=== PATIENT | female | born 1955 | race Hispanic/Latino ===

== ENCOUNTER 2023-03-21 11:37 | Inpatient (IN) | payer OTHER ==
[~2023-03-21] VITALS: Ht 157.5 cm; Wt 59.5 kg
[2023-03-21] MEDS ORDERED: MORPHINE 4 MG SYG IVP ONE (12:30)
[2023-03-21] MEDS ORDERED: 0.9%NACL 1000ML 1,000 ML IV ONE (12:30)
[2023-03-21] MEDS ORDERED: ONDANSETRON 4MG INJ IVP ONE (12:30)
[2023-03-21 13:08] LABS: BASOPHILS % (AUTO) 0.4 % (0.0-5.0); EOSINOPHILS % (AUTO) 1.3 % (0.0-8.0); LYMPHOCYTES % (AUTO) 24.8 % (21.0-51.0); MEAN CORPUSCULAR HEMOGLOBIN 29.9 pg (27.0-33.0); MEAN CORPUSCULAR HGB CONC 33.1 g/dL (32.0-36.0); MEAN CORPUSCULAR VOLUME 90.5 fL (79-99); MONOCYTES % (AUTO) 5.3 % (3.0-13.0); NEUTROPHILS % (AUTO) 67.9 % (40.0-77.0); PLATELET COUNT (AUTO) 277 K/uL (130-400); RED BLOOD CELL COUNT(AUTO) 4.31 MIL/uL (4.00-5.50); RED CELL DISTRIBUTION WIDTH 13.4 % (11.0-15.5); WHITE BLOOD COUNT (AUTO) 9.1 K/uL (4.8-10.8)
[2023-03-21 13:09] LABS: APPEARANCE,URINE CLEAR (CLEAR); BILIRUBIN,URINE NEGATIVE (NEGATIVE); COLOR,URINE LIGHT-YELLOW (YELLOW); GLUCOSE, URINE (UA) NEGATIVE (NEGATIVE); KETONES,URINE NEGATIVE (NEGATIVE); LEUKOCYTE ESTERASE ,URINE NEGATIVE Leu/uL (NEGATIVE); NITRATE,URINE NEGATIVE (NEGATIVE); OCCULT BLOOD,URINE NEGATIVE (NEGATIVE); PH,URINE 6.5 (5.0-8.0); PROTEIN,URINE NEGATIVE (NEGATIVE); UROBILINOGEN,URINE 0.2 mg/dL (0.2-1.0)
[2023-03-21 13:16] LABS: CARBON DIOXIDE 26 mmol/L (21-32); CHLORIDE 99 mmol/L (101-111); CREATININE 0.6 mg/dL (0.5-1.5); GLOMERULAR FILTR. RATE CALC 98 mL/min (>90); GLUCOSE,RANDOM 121 mg/dL (70-105); POTASSIUM 3.8 mmol/L (3.5-5.1); SODIUM SERUM 135 mmol/L (136-145); UREA NITROGEN, BLOOD 18 mg/dL (7-18)
[2023-03-21 13:20] LABS: ALANINE AMINOTRANSFERASE 18 U/L (12-78); ALBUMIN 4.1 g/dL (3.5-5.0); ASPARTATE AMINOTRANSFERASE 13 U/L (10-37); TOTAL PROTEIN, SERUM 7.5 g/dL (6.0-8.3)
[2023-03-21 13:31] LABS: LIPASE < 50 U/L (114-286)
[2023-03-21] MEDS ORDERED: KETOROLAC 15MG/ML VIAL (15MG/ML) IV ONE (14:00)
[2023-03-21] MEDS ORDERED: ZOSYN 3.375GM+NS 50ML 50 ML IVPB ONE (14:01)
[2023-03-21] MEDS ORDERED: LOSA100T59 PO (14:57)
[2023-03-21] MEDS ORDERED: ZOSYN 3.375GM +NS 50ML IVPB ONE (15:00)
[2023-03-21 15:11] LABS: INR 0.9 (0.85-1.15); PARTIAL THROMBOPLASTIN TIME 26.2 SEC (26.3-35.5); PROTHROMBIN TIME 9.7 SEC (9.6-11.6)
[2023-03-21 15:24] LABS: HEMOGLOBIN A1C 6.1 % (4.0-6.0)
[2023-03-21] MEDS: PHARMACY COMMUNICATION MISC SCH ×5 (16:19→23:30)
[2023-03-21] MEDS: 0.9%NACL 1000ML 1,000 ML IV SCH (16:23)
[2023-03-21] MEDS: MORPHINE 2 MG SYG IVP PRN (19:47)
[2023-03-21] MEDS ORDERED: 0.9%NACL 50ML IV SCH (20:00)
[2023-03-21] MEDS: ZOSYN 3.375GM +NS 50ML IVPB SCH (22:36)
[2023-03-21] MEDS: KETOROLAC 15MG/ML VIAL (15MG/ML) IV PRN (22:43)
[2023-03-22] MEDS: PHARMACY COMMUNICATION MISC SCH ×12 (01:30→22:32)
[2023-03-22] MEDS: 0.9%NACL 1000ML 1,000 ML IV SCH ×2 (04:50→19:22)
[2023-03-22] MEDS ORDERED: MORPHINE 4 MG SYG ONE (05:15)
[2023-03-22] MEDS: MORPHINE 2 MG SYG IVP PRN ×2 (05:20→18:03)
[2023-03-22] MEDS: ZOSYN 3.375GM +NS 50ML IVPB SCH ×3 (07:39→22:31)
[2023-03-22] MEDS: KETOROLAC 15MG/ML VIAL (15MG/ML) IV PRN ×3 (07:44→20:20)
[2023-03-22 08:05] LABS: BASOPHILS % (AUTO) 0.1 % (0.0-5.0); HEMATOCRIT 35.5 % (36-48); MEAN CORPUSCULAR HEMOGLOBIN 30.6 pg (27.0-33.0); MEAN CORPUSCULAR HGB CONC 33.5 g/dL (32.0-36.0); MEAN CORPUSCULAR VOLUME 91.3 fL (79-99); MONOCYTES % (AUTO) 7.4 % (3.0-13.0); PLATELET COUNT (AUTO) 244 K/uL (130-400); RED BLOOD CELL COUNT(AUTO) 3.89 MIL/uL (4.00-5.50); RED CELL DISTRIBUTION WIDTH 13.9 % (11.0-15.5); WHITE BLOOD COUNT (AUTO) 13.7 K/uL (4.8-10.8)
[2023-03-22 08:39] LABS: ALBUMIN 3.5 g/dL (3.5-5.0); CREATININE 0.7 mg/dL (0.5-1.5); POTASSIUM 3.7 mmol/L (3.5-5.1); TOTAL PROTEIN, SERUM 6.7 g/dL (6.0-8.3)
[2023-03-22] MEDS ORDERED: HYDRALAZINE 20MG/ML VIAL IV PRN (15:30)
[2023-03-22 16:50] VITALS: BP 129/64
[2023-03-22 19:20] VITALS: BP 128/63
[2023-03-23] VITALS (29 sets, daily range): BP systolic 121–166; BP diastolic 59–79
[2023-03-23] MEDS: PHARMACY COMMUNICATION MISC SCH ×3 (00:37→03:51)
[2023-03-23] MEDS: KETOROLAC 15MG/ML VIAL (15MG/ML) IV PRN ×2 (03:07→08:49)
[2023-03-23 05:04] LABS: HEMATOCRIT 32.4 % (36-48); MEAN CORPUSCULAR HEMOGLOBIN 29.7 pg (27.0-33.0); MEAN CORPUSCULAR HGB CONC 32.4 g/dL (32.0-36.0); MEAN CORPUSCULAR VOLUME 91.5 fL (79-99); RED BLOOD CELL COUNT(AUTO) 3.54 MIL/uL (4.00-5.50); RED CELL DISTRIBUTION WIDTH 14.1 % (11.0-15.5); WHITE BLOOD COUNT (AUTO) 12.2 K/uL (4.8-10.8)
[2023-03-23 05:33] LABS: ALBUMIN 2.9 g/dL (3.5-5.0); BILIRUBIN,DIRECT 0.3 mg/dL (0.0-0.3); MAGNESIUM 1.5 mg/dL (1.80-2.40); TOTAL PROTEIN, SERUM 6.2 g/dL (6.0-8.3)
[2023-03-23] MEDS: MAGNESIUM 2GM PREMIX 50ML 50 ML IV PRN (06:03)
[2023-03-23] MEDS: 0.9%NACL 1000ML 1,000 ML IV SCH ×2 (07:00→21:44)
[2023-03-23] MEDS: ZOSYN 3.375GM +NS 50ML IVPB SCH ×3 (07:46→22:51)
[2023-03-23] MEDS: LOSARTAN 100 MG TABLET PO SCH (08:37)
[2023-03-23] MEDS ORDERED: PROPOFOL 10 MG/ML 20ML VIAL IV ONE (10:49)
[2023-03-23] MEDS ORDERED: ONDANSETRON 4MG INJ ONE (10:49)
[2023-03-23] MEDS ORDERED: ROCURONIUM 10MG/1ML SYR 10 MG/ML ML ONE (10:49)
[2023-03-23] MEDS ORDERED: FENTANYL CITRATE PF 50 MCG/1 ML 5ML AMP IV ONE (10:49)
[2023-03-23] MEDS ORDERED: ROPIVACAINE 0.5% 5MG/ML 30ML IJ ONE (12:42)
[2023-03-23] MEDS ORDERED: MAGNESIUM SULFATE 1 GM/2 ML VIAL ONE (12:42)
[2023-03-23] MEDS ORDERED: KETAMINE 50MG/ML SYRINGE 50 MG/ML DISP.SYRIN ONE (12:43)
[2023-03-23] MEDS ORDERED: LIDOCAINE 1%-EPI 1:100,000 20 ML VIAL IJ ONE (12:43)
[2023-03-23] MEDS ORDERED: MIDAZOLAM HCL 1 MG/ML 2ML VIAL ONE (12:47)
[2023-03-23] MEDS ORDERED: KETOROLAC 30MG VIAL (30MG/ML) ONE (13:29)
[2023-03-23] MEDS ORDERED: NEOSTIGMINE 5MG/5ML SYR IV ONE (13:42)
[2023-03-23] MEDS ORDERED: GLYCOPYRROLATE 1 MG/5 ML SYRINGE ONE (13:42)
[2023-03-23] MEDS ORDERED: FENTANYL CITRATE PF 50 MCG/1 ML 2ML VIAL ONE (13:45)
[2023-03-23] MEDS ORDERED: MEPERIDINE-PF 25 MG/ML SYG ONE ×2 (14:20→14:30)
[2023-03-24 04:00] VITALS: BP 130/75
[2023-03-24 04:44] LABS: BASOPHILS % (AUTO) 0.1 % (0.0-5.0); EOSINOPHILS % (AUTO) 0.1 % (0.0-8.0); HEMATOCRIT 29.5 % (36-48); LYMPHOCYTES % (AUTO) 12.9 % (21.0-51.0); MEAN CORPUSCULAR HGB CONC 32.9 g/dL (32.0-36.0); MEAN CORPUSCULAR VOLUME 91.3 fL (79-99); MONOCYTES % (AUTO) 7.6 % (3.0-13.0); NEUTROPHILS % (AUTO) 78.7 % (40.0-77.0); PLATELET COUNT (AUTO) 214 K/uL (130-400); RED BLOOD CELL COUNT(AUTO) 3.23 MIL/uL (4.00-5.50); WHITE BLOOD COUNT (AUTO) 9.1 K/uL (4.8-10.8)
[2023-03-24 05:13] LABS: ALBUMIN 2.6 g/dL (3.5-5.0); CREATININE 0.7 mg/dL (0.5-1.5); MAGNESIUM 1.7 mg/dL (1.80-2.40); POTASSIUM 3.3 mmol/L (3.5-5.1)
[2023-03-24] MEDS: MAGNESIUM 2GM PREMIX 50ML 50 ML IV PRN (05:24)
[2023-03-24] MEDS ORDERED: POTASSIUM CHLORIDE 20MEQ/100ML 100 ML IV PRN (05:30)
[2023-03-24] MEDS ORDERED: KCL 20 MEQ ERTAB PO PRN (05:30)
[2023-03-24] MEDS: POTASSIUM CHLORIDE 10% ELIXIR 20 MEQ/15 ML UDCUP PO PRN ×3 (05:34→16:31)
[2023-03-24] MEDS: ZOSYN 3.375GM +NS 50ML IVPB SCH ×2 (06:35→14:54)
[2023-03-24 08:00] VITALS: BP 125/62
[2023-03-24] MEDS: LOSARTAN 100 MG TABLET PO SCH (08:16)
[2023-03-24] MEDS: 0.9%NACL 1000ML 1,000 ML IV SCH (09:40)
[2023-03-24 11:38] VITALS: BP 123/60
[2023-03-24 16:00] VITALS: BP 142/74
== END 2023-03-24 18:15 | disposition home or self-care (01) | DRG 419 ==
LOC: EDH 11:37 → EDHIP 11:38 → 4AH 03-22 16:45
PROVIDERS: ADMIT Internal Medicine; ATTEND Internal Medicine
PROC: 0FT44ZZ Resection of Gallbladder, Percutaneous Endoscopic Approach (ICD-10-PCS; principal; 2023-03-23 12:30)
DX: K80.00 Calculus of gallbladder with acute cholecystitis without obstruction (principal); F17.200 Nicotine dependence, unspecified, uncomplicated; I10 Essential (primary) hypertension; K82.8 Other specified diseases of gallbladder; Z90.710 Acquired absence of both cervix and uterus
CPT/HCPCS: 36415; 74176; 76705; 78226; 80053; 80076; 81003; 82948; 83036; 83690; 83735; 84443; 84484; 85025; 85027; 85610; 85730; 93005; A9537; G0378; J1885; J2175; J2250; J2270; J2405; J2543; J2704; J2710; J2795; J3010; J3475; J3490; J7030